=== PATIENT | female | born 1950 | race Caucasian/White ===

== ENCOUNTER → 2016-11-25 | Outpatient (CLI) | payer MEDICARE ==
--- NOTE | 2016-11-25 19:56 | WWHP ---
DATE OF DICTATION: 11/25/2016 CHIEF COMPLAINT: The patient is here for her routine gynecologic exam and mammogram. HISTORY OF PRESENT ILLNESS: This is a 66-year-old G3, P3 with an LMP of 1998. She is without gynecologic complaints. PAST MEDICAL HISTORY: 1. Chronic hypertension. 2. Elevated cholesterol. 3. Hearing loss requiring a hearing aid. MEDICATIONS: 1. Losartan/hydrochlorothiazide 100/12.5 mg 1 daily. 2. Adipex P 37.5 mg 1 daily p.r.n. 3. Calcium daily. 4. Vitamin D3 5000 units daily. 5. Iron 65 mg daily. 6. Vitamin B12 1000 mg once weekly. 7. Probiotic once daily. 8. Glucosamine with chondroitin 1 daily. 9. Lutein Plus 1 daily. 10. Co-Q10 100 mg daily. 11. Lissa root supplement daily. 12. Adult multivitamin 1 daily. ALLERGIES: NO KNOWN DRUG ALLERGIES. Past surgical, LOG GRADER and family histories are unchanged from the 2015 H&P. SOCIAL HISTORY: She denies tobacco and drug use and has about 4 to 5 alcoholic drinks per month. 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 She has 3 grandchildren. REVIEW OF SYSTEMS: She has lost about 26 pounds over the last year; this was following her gastric sleeve surgery. She denies respiratory, cardiac or GI problems. PHYSICAL EXAM: Blood pressure 133/80. Height 5 feet 7 inches. Weight 227 pounds. Temperature 97.6, pulse 70. This is a well-developed, heavyset white female who is alert and oriented x3, in no acute distress. HEENT is within normal limits. NECK: Supple without mass or thyromegaly. CHEST AND LUNGS: Clear to auscultation. HEART: Regular rate and rhythm. Breasts are without mass or discharge. Axillary exam is negative for adenopathy. BACK: Negative for CVA tenderness. ABDOMEN: Soft, nontender, without palpable masses. PELVIC EXAM: Normal external genitalia. Cervix and vagina appear normal. There is no evidence of prolapse. The uterus is midposition, nongravid size and nontender. There are no palpable adnexal masses or tenderness. Rectovaginal exam is negative for mass or tenderness and is negative for occult blood. EXTREMITIES: Nontender. IMPRESSION: Mbtrz-dgnui-[id number]-old menopausal female with normal gynecologic exam. PLAN: 1. Pap smear was deferred, since she had a normal one last year. 2. Self breast examination was discussed. 3. Mammogram will be done today. 4. Osteoporosis prevention was discussed, and we will plan on repeating bone density testing in approximately 3 years, since she had a normal one 2 years ago. 5. She states she is planning to get a colonoscopy, since she will be due in the near future. 6. She will return in one year.
--- NOTE | 2016-11-26 10:21 | MM ---
Reason for exam: screening (asymptomatic). Last mammogram was performed 1 year and 1 month ago. History: Patient is postmenopausal. Physical Findings: A clinical breast exam by your physician is recommended on an annual basis and results should be correlated with mammographic findings. MG 3D Screening Mammo W/Cad Bilateral CC and MLO view(s) were taken. Prior study comparison: October 31, 2015, bilateral MG 3d screening mammo w/cad. October 24, 2014, bilateral MG screening mammo w CAD. The breast tissue is almost entirely fat. Finding: There are typically benign diffuse/scattered calcifications in both breasts. No significant changes in finding since October 31, 2015 and October 24, 2014. ASSESSMENT: Benign, BI-RAD 2 RECOMMENDATION: Routine screening mammogram of both breasts in 1 year.
== END | disposition home or self-care (01) ==
LOC: WWCWWP 10:21
PROVIDERS: ATTEND Obstetrics & Gynecology
DX: Z12.31 Encounter for screening mammogram for malignant neoplasm of breast (principal)
CPT/HCPCS: 77063; G0202

== ENCOUNTER → 2017-03-23 | Outpatient (CLI) | payer MEDICARE ==
[2017-03-23 13:33] VITALS: BP 141/68; PULSE 53; RESP 15; TEMP 98; BMI 35.0
[2017-03-23 14:33] LABS: CH 29.8; CHCM 33.8; HCT 41.5 % (34.0-46.0); HDW 2.39; HGB 13.9 gm/dL (11.4-16.0); MCH 29.7 pg (25.0-35.0); MCHC 33.5 g/dL (31.0-37.0); MCV 88.4 fL (80.0-100.0); Mean Platelet Volume 7.4; RBC 4.69 m/uL (3.80-5.40); RDW 12.7 % (11.5-15.5); WBC 8.2 k/uL (3.8-10.6)
[2017-03-23 14:38] LABS: ALT 29 U/L (9-52); AST 20 U/L (14-36); Alkaline Phosphatase 75 U/L (38-126); Anion Gap 10 mmol/L; Blood Urea Nitrogen 16 mg/dL (7-17); Calcium 10.3 mg/dL (8.4-10.2); Carbon Dioxide 27 mmol/L (22-30); Chloride 106 mmol/L (98-107); Glucose 102 mg/dL (74-99); Non-African American GFR(MDRD) >60 (>60 ml/min/1.73 sqM); Sodium 143 mmol/L (137-145); Total Protein 6.8 g/dL (6.3-8.2)
[2017-03-23 15:26] LABS: Vitamin B12 911 pg/mL
--- NOTE | 2017-03-23 15:43 | P.HPBAR ---
Bariatric H&P - History & Physicial H&P Date: 03/23/17 History & Physicial: Visit/CC: sleeve annual exam 11/06 Patient initial contact: Initial weight: 140.614 kg Initial weight in pounds: 310.00 Height: 5 ft 7.25 in Initial BMI: 48.2 Last weight: Current weight: 102.194 kg Current weight in pounds: 225.30 Current BMI: 35.0 [place] body weight (based on NIH guidelines): 61.802 kg Excess body weight loss: 48.7% The patient is a 67 year-old F who presents for Bariatric Assessment. Patient rents for sleeve gastrectomy follow-up. She's not been seen over a year. She has some complaints of GERD and is wishing to have a refill of her Prilosec. Past Medical History Past Medical History: Hyperlipidemia, Hypertension Additional Past Medical History / Comment(s): 3 healthy vaginal pregnancies, arthritis beginning in left digit 5, hearing impaired with dx of otosclerosis History of Any Multi-Drug Resistant Organisms: None Reported Past Surgical History: Appendectomy, Bariatric Surgery, Tonsillectomy Additional Past Surgical History / Comment(s): lap band 2006 (removed 2014 when converted sleeve), right ear sx x2/ left ear sx x1. Past Anesthesia/Blood Transfusion Reactions: No Reported Reaction Additional Past Anesthesia/Blood Transfusion Reaction / Comm: no transfusions to date Past Psychological History: No Psychological Hx Reported Smoking Status: Former smoker Past Alcohol Use History: Occasional Additional Past Alcohol Use History / Comment(s): holiday social drinking Past Drug Use History: None Reported - Past Family History Mother Family Medical History: Cancer, Congestive Heart Failure (CHF), Coronary Artery Disease (CAD) Additional Family Medical History / Comment(s): bladder cancer. at age 92 from heart failure Father Family Medical History: Congestive Heart Failure (CHF), Coronary Artery Disease (CAD) Additional Family Medical History / Comment(s): at age 84 from heart problems Brother(s) Family Medical History: Cancer, Coronary Artery Disease (CAD) Additional Family Medical History / Comment(s): colon cancer. in age 60 's from heart attack. Surgical - Exam Vital Signs Temp Pulse Resp BP 98.0 F 53 L 15 141/68 03/23/17 13:14 03/23/17 13:14 03/23/17 13:14 03/23/17 13:14 - General well developed, no distress - Eyes PERRL - ENT normal pinna - Neck no masses - Respiratory normal expansion - Cardiovascular Rhythm: regular - Abdomen Abdomen: soft, non tender Results - Labs 03/23/17 13:48 03/23/17 13:48 Abnormal Lab Results - Last 24 Hours (Table) 03/23/17 Range/Units 13:48 Glucose 102 H (74-99) mg/dL Calcium 10.3 H (8.4-10.2) mg/dL Diabetes panel 03/23/17 Range/Units 13:48 Sodium 143 (137-145) mmol/L Potassium 4.0 (3.5-5.1) mmol/L Chloride 106 (98-107) mmol/L Carbon Dioxide 27 (22-30) mmol/L BUN 16 (7-17) mg/dL Creatinine 0.80 (0.52-1.04) mg/dL Glucose 102 H (74-99) mg/dL Calcium 10.3 H (8.4-10.2) mg/dL AST 20 (14-36) U/L ALT 29 (9-52) U/L Alkaline Phosphatase 75 (38-126) U/L Total Protein 6.8 (6.3-8.2) g/dL Albumin 4.0 (3.5-5.0) g/dL Calcium panel 03/23/17 Range/Units 13:48 Calcium 10.3 H (8.4-10.2) mg/dL Albumin 4.0 (3.5-5.0) g/dL Pituitary panel 03/23/17 Range/Units 13:48 Sodium 143 (137-145) mmol/L Potassium 4.0 (3.5-5.1) mmol/L Chloride 106 (98-107) mmol/L Carbon Dioxide 27 (22-30) mmol/L BUN 16 (7-17) mg/dL Creatinine 0.80 (0.52-1.04) mg/dL Glucose 102 H (74-99) mg/dL Calcium 10.3 H (8.4-10.2) mg/dL Adrenal panel 03/23/17 Range/Units 13:48 Sodium 143 (137-145) mmol/L Potassium 4.0 (3.5-5.1) mmol/L Chloride 106 (98-107) mmol/L Carbon Dioxide 27 (22-30) mmol/L BUN 16 (7-17) mg/dL Creatinine 0.80 (0.52-1.04) mg/dL Glucose 102 H (74-99) mg/dL Calcium 10.3 H (8.4-10.2) mg/dL Total Bilirubin 1.0 (0.2-1.3) mg/dL AST 20 (14-36) U/L ALT 29 (9-52) U/L Alkaline Phosphatase 75 (38-126) U/L Total Protein 6.8 (6.3-8.2) g/dL Albumin 4.0 (3.5-5.0) g/dL Bariatric Assessment & Plan Plan: Status post sleeve gastrectomy. Patient has maintained stable weight loss. The patient will have her GERD symptoms treated with Prilosec. A prescription was called into her [facility] pharmacy in [place]. She'll follow-up in one month. Bariatric Checklist Checklist: Plan: Checklist: EGD: 1. Hiatal hernia: 2. H. Pylori: HgbA1c: Vitamin D: Smoking: Former smoker Primary care physician referral: Flex Stevens ([facility]) Psychiatry clearance: Cardiology clearance: Sleep study: Diet journal: VTE risk score: VTE risk level: Rehab needs at discharge:
== END ==
LOC: BARWHC3 12:51
PROVIDERS: ATTEND Surgery
DX: Z48.815 Encounter for surgical aftercare following surgery on the digestive system (principal); Z98.84 Bariatric surgery status; K21.9 Gastro-esophageal reflux disease without esophagitis; E66.01 Morbid (severe) obesity due to excess calories; E55.9 Vitamin D deficiency, unspecified; Z87.891 Personal history of nicotine dependence; Z79.899 Other long term (current) drug therapy
CPT/HCPCS: 80053; 82306; 82607; 84425; 85027; 99211

== ENCOUNTER → 2017-04-13 | Outpatient (CLI) | payer MEDICARE ==
[2017-04-13 13:43] VITALS: BP 170/74; PULSE 54; TEMP 97.7; BMI 35.5
--- NOTE | 2017-04-13 16:02 | P.HPBAR ---
Bariatric H&P - History & Physicial H&P Date: 04/13/17 History & Physicial: Visit/CC: follow up visit Patient initial contact: Initial weight: 140.614 kg Initial weight in pounds: 310.00 Height: 5 ft 7.25 in Initial BMI: 48.2 Last weight: Current weight: 103.646 kg Current weight in pounds: 228.50 Current BMI: 35.5 [place] body weight (based on NIH guidelines): 61.802 kg Excess body weight loss: 46.9% The patient is a 67 year-old F who presents for Bariatric Assessment. She presents today for sleeve follow-up. She's had complaints of some epigastric pain and nausea. Review of Systems Constitutional: Reports as per HPI Past Medical History Past Medical History: Hyperlipidemia, Hypertension Additional Past Medical History / Comment(s): 3 healthy vaginal pregnancies, arthritis beginning in left digit 5, hearing impaired with dx of otosclerosis History of Any Multi-Drug Resistant Organisms: None Reported Past Surgical History: Appendectomy, Bariatric Surgery, Tonsillectomy Additional Past Surgical History / Comment(s): lap band 2006 (removed 2014 when converted sleeve), right ear sx x2/ left ear sx x1. Past Anesthesia/Blood Transfusion Reactions: No Reported Reaction Additional Past Anesthesia/Blood Transfusion Reaction / Comm: no transfusions to date Past Psychological History: No Psychological Hx Reported Smoking Status: Former smoker Past Alcohol Use History: Occasional Additional Past Alcohol Use History / Comment(s): holiday social drinking Past Drug Use History: None Reported - Past Family History Mother Family Medical History: Cancer, Congestive Heart Failure (CHF), Coronary Artery Disease (CAD) Additional Family Medical History / Comment(s): bladder cancer. at age 92 from heart failure Father Family Medical History: Congestive Heart Failure (CHF), Coronary Artery Disease (CAD) Additional Family Medical History / Comment(s): at age 84 from heart problems Brother(s) Family Medical History: Cancer, Coronary Artery Disease (CAD) Additional Family Medical History / Comment(s): colon cancer. in age 60 's from heart attack. Surgical - Exam Vital Signs Temp Pulse BP 97.7 F 54 L 170/74 04/13/17 13:37 04/13/17 13:37 04/13/17 13:37 - General well developed, no distress - Eyes PERRL - ENT normal pinna - Neck no masses - Respiratory normal expansion - Cardiovascular Rhythm: regular - Abdomen Abdomen: soft, non tender Bariatric Assessment & Plan Plan: Patient underwent esophagram/upper GI today. Her sleeve appears to be normal in configuration. There is no evidence of obstruction. There is no evidence of reflux or hiatal hernia. The patient has been scheduled for HIDA scan. She will follow-up in one month. Bariatric Checklist Checklist: Plan: Checklist: EGD: 1. Hiatal hernia: 2. H. Pylori: HgbA1c: Vitamin D: Smoking: Former smoker Primary care physician referral: Flex Stevens ([facility]) Psychiatry clearance: Cardiology clearance: Sleep study: Diet journal: VTE risk score: VTE risk level: Rehab needs at discharge:
--- NOTE | 2017-04-14 15:41 | FL ---
EXAMINATION TYPE: FL UGI DATE OF EXAM ORDERED: 04/13/2017 3:15 PM HISTORY: K21.9 GERD. COMPARISON: None. FINDINGS: The patient has had a previous gastric sleeve. There is mild dilatation of the distal esop hagus above the GE junction. There is a focal area of narrowing within the mid body of the remaining stomach. There is prompt egress of barium from the esophagus into the stomach and out of the stomach into the small bowel. The ligament of Treitz is in the normal location. IMPRESSION: 1. STATUS POST GASTRIC SLEEVE. 2. MINIMAL DILATATION OF THE ESOPHAGUS ABOVE THE GE JUNCTION. 3. FIXED AREA OF NARROWING IN THE MID STOMACH.
== END | disposition home or self-care (01) ==
LOC: BARWHC3 11:53
PROVIDERS: ATTEND Surgery
DX: K22.8 Other specified diseases of esophagus (principal); K31.89 Other diseases of stomach and duodenum; K21.9 Gastro-esophageal reflux disease without esophagitis; Z98.84 Bariatric surgery status; Z87.891 Personal history of nicotine dependence
CPT/HCPCS: 74240; G0463; 99211

== ENCOUNTER → 2017-05-04 | Outpatient (CLI) | payer MEDICARE ==
--- NOTE | 2017-05-04 15:04 | NM ---
Nuclear medicine hepatobiliary scan. HISTORY: Pain. The patient received 8 ounces of ensure plus and 5.2 mCi of Technetium 99m Choletec. There is normal hepatic extraction. The gallbladder is seen by 20 minutes. There is biliary to lashell l clearance by 20 minutes. Ejection fraction is 69%. IMPRESSION: 1. Normal hepatobiliary exam
== END | disposition home or self-care (01) ==
LOC: RADNMMAIN 12:40
PROVIDERS: ATTEND Surgery
DX: R10.84 Generalized abdominal pain (principal)
CPT/HCPCS: 78226; A9537

== ENCOUNTER → 2017-07-10 | Outpatient (CLI) | payer MEDICARE ==
[2017-07-10 15:14] LABS: Blood Urea Nitrogen 14 mg/dL (7-17); Non-African American GFR(MDRD) >60 (>60 ml/min/1.73 sqM)
--- NOTE | 2017-07-10 16:18 | CT ---
EXAMINATION TYPE: CT urogram wo/w con DATE OF EXAM: 07/10/2017 COMPARISON: NONE INDICATION: Hematuria and protein in urine, No complaints of pain DLP: 2754.7 mGycm, Automated exposure control for dose reduction was used. CONTRAST: 100 mL of Omnipaque 300. Study performed TECHNIQUE: Axial images were obtained from above the diaphragm to the pubic rami in the axial plane a t 5 mm thick sections. Reconstructed images are reviewed on the computer in the coronal plane. FINDINGS: Limited CT sections are obtained the lung bases. The lung bases are clear. There is a small hiatal h ernia present. Gastric sleeve appears to be present. Coronary artery calcification is noted. There a ppears to be a loculated pleural fluid collection just above the left diaphragm. This measures [address] ABDOMEN: Liver: Normal Spleen: Normal Pancreas: Normal Adrenal glands: The adrenal glands are normal. Gallbladder: Multiple gallstones are present. Kidneys: No masses are evident. Mild hydronephrosis of the right kidney which is present at superior pole. There is a large calcification within the right renal pelvis measuring 1.5 x 2.1 cm in size. No hydroureter is evident. No left renal stones are evident. No cysts are present. Delayed images were obtained through the kidneys. Three-D reconstructed images were obtained on delayed images. Ureters appear normal on Three-D reconstructed images to the level of the mid pelvis on the left left and to the urinary bladder on the right. No hydroureter is evident. There may be some focal stenosis without obstruction in the proximal right ureter. Aorta: Vascular calcification is within the aorta. Inferior vena cava: Normal. Loops of bowel within the abdomen and pelvis are normal. Study is performed without oral contrast limiting the evaluation. IMPRESSIONS: 1. Large calcification in the inferior left renal collecting system without obstruction. 2. Incomplete evaluation of the distal left ureter. No hydroureter is evident suggest obstruction. 3. Focal stenosis at the right ureteral pelvic junction may be present. This could be peristalsis wit hout hydronephrosis. Consider retrograde ureterogram for confirmation.
== END | disposition home or self-care (01) ==
LOC: RADCTMAIN 14:39
PROVIDERS: ATTEND Family Medicine
DX: N28.89 Other specified disorders of kidney and ureter (principal); R31.9 Hematuria, unspecified; R80.9 Proteinuria, unspecified; Z80.52 Family history of malignant neoplasm of bladder
CPT/HCPCS: 82565; 84520; 74178; 36415; 74400; Q9967

== ENCOUNTER → 2017-08-12 | Outpatient (CLI) | payer MEDICARE ==
--- NOTE | 2017-08-12 11:17 | XR ---
EXAMINATION TYPE: XR abdomen 1V DATE OF EXAM: 08/12/2017 11:00 AM CLINICAL HISTORY: Right-sided kidney stone TECHNIQUE: Two supine KUB images of the abdomen are obtained. COMPARISON: CT urogram July 10, 2017. FINDINGS: There is dominant 2.7 cm calculus right kidney lower pole collecting system extending into pelvis redemonstrated felt stable. Some scattered pelvic phleboliths are redemonstrated. There is overall nonobstructive bowel gas pattern. Surgical sutures from gastric sleeve procedure epi gastric region are redemonstrated. Curvilinear opacity left lung base correlates with basilar fluid o n CT. Visualized osseous structures are intact. IMPRESSION: Stable 2.7 cm dominant right lower pole collecting system calculus.
== END | disposition home or self-care (01) ==
LOC: RADXRMAIN 10:44
PROVIDERS: ATTEND Urology
DX: N20.2 Calculus of kidney with calculus of ureter (principal)
CPT/HCPCS: 74000

== ENCOUNTER → 2017-08-31 | Outpatient (CLI) | payer MEDICARE ==
[2017-08-31 12:41] LABS: EKG EKG PERFORMED
[2017-08-31 13:08] LABS: Basophils # (A) 0.1 k/uL (0-0.2); Basophils % (A) 2 %; CH 30.5; CHCM 33.8; Eosinophils # (A) 0.3 k/uL (0-0.7); Eosinophils % (A) 5 %; HCT 43.4 % (34.0-46.0); HDW 2.39; HGB 14.1 gm/dL (11.4-16.0); Luc # (Auto) 0.12; Luc % (Auto) 2; Lymphocytes # (A) 2.1 k/uL (1.0-4.8); Lymphocytes % (A) 29 %; MCH 29.5 pg (25.0-35.0); MCHC 32.6 g/dL (31.0-37.0); MCV 90.7 fL (80.0-100.0); Mean Platelet Volume 7.5; Monocytes # (A) 0.5 k/uL (0-1.0); Monocytes % (A) 7 %; Neutrophils # (A) 4.2 k/uL (1.3-7.7); Neutrophils % (A) 57 %; RBC 4.79 m/uL (3.80-5.40); RDW 13.6 % (11.5-15.5); WBC 7.4 k/uL (3.8-10.6); WBC (Perox) 7.75
[2017-08-31 13:16] LABS: ALT 37 U/L (9-52); AST 18 U/L (14-36); Alkaline Phosphatase 80 U/L (38-126); Anion Gap 11 mmol/L; Blood Urea Nitrogen 16 mg/dL (7-17); Calcium 9.9 mg/dL (8.4-10.2); Carbon Dioxide 23 mmol/L (22-30); Chloride 106 mmol/L (98-107); Glucose 152 mg/dL (74-99); Non-African American GFR(MDRD) >60 (>60 ml/min/1.73 sqM); Potassium 3.8 mmol/L (3.5-5.1); Sodium 140 mmol/L (137-145); Total Bilirubin 0.7 mg/dL (0.2-1.3); Total Protein 6.5 g/dL (6.3-8.2)
[2017-08-31 13:48] LABS: Appearance,Urine Turbid (Clear); Bacteria,Urine Moderate /hpf; Bilirubin,Urine Negative (Negative); Glucose,Urine (UA) Negative (Negative); Ketones,Urine Negative (Negative); Leukocyte Esterase,Urine Large (Negative); Mucus,Urine Few /hpf; Nitrite,Urine Positive (Negative); PH, Urine 5.5 (5.0-8.0); Particle Count 10870; Protein,Urine 2+ (Negative); RBC,Urine 34 /hpf (0-5); Specific Gravity,Urine 1.017 (1.001-1.035); Squamous Epithelial Cell,Urine 2 /hpf (0-4); UA Billing (MACRO vs. MICRO) MICRO; Urobilinogen,Urine <2.0 mg/dL (<2.0); WBC,Urine >182 /hpf (0-5)
--- NOTE | 2017-08-31 16:04 | XR ---
EXAMINATION TYPE: XR chest 2V DATE OF EXAM: 08/31/2017 COMPARISON: None HISTORY: 67-year-old female with a chest pain, presurgical evaluation TECHNIQUE: Frontal and lateral views FINDINGS: The cardiomediastinal silhouette, aorta, and pulmonary vasculature are within normal limits. There is some blunting of the lateral left costophrenic angle without pleural effusion on the lateral view. O therwise, lungs and pleural spaces are clear. Dextroconvex scoliosis of the thoracic spine. IMPRESSION: Some blunting of the left lateral costophrenic angle could represent pleural parenchymal scarring or some patchy atelectasis/infiltrate. No effusion on the lateral view.
== END | disposition home or self-care (01) ==
LOC: LABPAT 12:25
PROVIDERS: ATTEND Urology
DX: Z01.818 Encounter for other preprocedural examination (principal); Z01.810 Encounter for preprocedural cardiovascular examination; R91.8 Other nonspecific abnormal finding of lung field; N20.0 Calculus of kidney; I10 Essential (primary) hypertension; R35.0 Frequency of micturition; R31.29 Other microscopic hematuria; E66.9 Obesity, unspecified; Z79.899 Other long term (current) drug therapy
CPT/HCPCS: 71020; 80053; 81001; 85025; 86850; 86900; 86901; 87086; 93005

== ENCOUNTER 2017-09-11 11:51 | Inpatient (IN) | payer MEDICARE ==
[2017-09-07 09:12] VITALS: BMI 36.3
[~2017-09-11 11:51] MED LIST: DEXAMETHASONE SOD PHOSPHATE 10 MG/ML 1 ML VIAL IV ONE; MIDAZOLAM 2 MG/2 ML VIAL IV PRN; ONDANSETRON 4 MG/2 ML VIAL IVP ONE; ceFAZolin 1,000 MG in DEXTROSE/WATER 1 50ML.BAG IV ONE
[2017-09-11] MEDS: LACTATED RINGERS 1,000 ML IV SCH (12:17)
[2017-09-11] MEDS ORDERED: LIDOCAINE 1% 20 ML VIAL (10MG/ML) FOR IV START INTRADERMA ONE (12:17)
[2017-09-11] MEDS ORDERED: SUCCINYLCHOLINE CHLORIDE 100 MG/5 ML SYR IV ONE (12:44)
[2017-09-11] MEDS ORDERED: HYDROmorphone (PF) 1 MG/ML ONE (12:44)
[2017-09-11] MEDS ORDERED: ePHEDrine SULFATE/0.9% NACL/PF 50 MG/5 ML SYRINGE IV ONE (12:44)
[2017-09-11] MEDS ORDERED: PROPOFOL 10 MG/ML 20 ML VIAL IV ONE (12:44)
[2017-09-11] MEDS ORDERED: LIDOCAINE 1% INJ 10MG/ML (20 ML MDV) ONE (12:44)
[2017-09-11] MEDS ORDERED: fentaNYL (PF) 50 MCG/ML 2 ML AMP ONE (12:44)
[2017-09-11] MEDS ORDERED: MIDAZOLAM 2 MG/2 ML VIAL ONE (12:44)
[2017-09-11] MEDS ORDERED: IOHEXOL 300 MG/ML 50 ML BOTTLE MISCELLANE ONE (13:12)
[2017-09-11] MEDS ORDERED: PANTOPRAZOLE 40 MG TABLET PO PRN (14:13)
[2017-09-11] MEDS ORDERED: MAG HYDROX/AL HYDROX/SIMETH 30 ML CUP PO PRN (14:19)
[2017-09-11] MEDS ORDERED: NALOXONE 0.4 MG/ML 1 ML VIAL IV PRN (14:27)
--- NOTE | 2017-09-11 14:31 | FL ---
EXAMINATION TYPE: FL Perc Nephrostomy New Access DATE OF EXAM: 09/11/2017 COMPARISON: NONE HISTORY: Right-sided renal calculus. PROCEDURE: Maximal barrier technique was utilized. The skin overlying the right kidney was localized using fluo roscopy and the overlying skin prepped and draped. Lidocaine used for local anesthesia. Skin toni w as made with a scalpel. Access was gained under fluoroscopy, following placement of a ureteral occlu saima balloon by the referring clinician and instillation of air in the renal collecting system with a 22-gauge needle to the kidney. A suitable posterior calyx was chosen. A 0.018 inch wire was Flavours. The access site was dilated and subsequently a sheath was advanced into the renal pelvis follow ing dilation with balloon along the tract. Urine returned in the hub of the catheter. The patient und erwent nephrolithotomy by the referring clinician. The patient remained in stable condition without complication. The patient was discharged to observation. IMPRESSION: STATUS POST NEPHROSTOMY PLACEMENT FOR NEPHROLITHOTOMY WITH FLUOROSCOPIC GUIDANCE. THIS PROCEDURE PER FORMED BY THE UNDERSIGNED.
--- NOTE | 2017-09-11 14:32 | P.OP ---
Date of Procedure: 09/11/17 Preoperative Diagnosis: Right renal calculus large Postoperative Diagnosis: Same Procedure(s) Performed: Cystoscopy with placement of 5-Botswanan occluding balloon catheter, right percutaneous nephrostolithotomy large with ultrasound placement of 10-Botswanan J nephrostomy Anesthesia: DEMI Surgeon: Renaldo Grewal Estimated Blood Loss (ml): 100 Pathology: other (Stone) Condition: stable Disposition: PACU Indications for Procedure: The patient is a 67-year-old female with a 3 cm right renal pelvic stone partial staghorn calculus who comes for percutaneous nephrostolithotomy Description of Procedure: The patient is brought to the operating suite she is given a successful general endotracheal anesthesia. She's placed in a frog position with a sterile prep and drape. Cystoscopy of the Foroblique lens and 22-Botswanan sheath is performed. The right ureteral orifice is identified and intubated with a 5- [place]wan[place] occluding balloon catheter. The catheters passed into the proximal ureter. The balloon is insufflated. The cystoscope was removed. A 16-Botswanan Fisher catheters placed and secured to the ureteral catheter The patient is placed in prone position with care to airways and extremities. Dr. Larios of radiology performed percutaneous access to the right lower pole calyx. I dilate the sheath to 30-Botswanan. Introduced the working sheath into the collecting system. The stone is seen under direct vision. With the rigid scope and ultrasonic lithotripter the stone is broken into smaller pieces. The larger stones are grasped and subsequently removed. I then looked throughout the collecting system with the flexible cystoscope and see no remaining stones. Fluoroscopically confirms this. Over the working wire a 10-Botswanan J nephrostomy tube was placed in the collecting system. His position is confirmed fluoroscopically. It is secured to the skin with 2-0 silk. The patient's awakened and returned recovery room good condition. She tolerated the procedure well. Blood loss is approximately 100 mL.
[2017-09-11] MEDS: HYDROmorphone 0.5 MG/0.5 ML SYRINGE IVP PRN ×2 (15:00→15:09)
[2017-09-11] MEDS ORDERED: LACTATED RINGERS 1,000 ML IV ONE (15:25)
[2017-09-11] MEDS: ONDANSETRON 4 MG/2 ML VIAL IVP PRN ×2 (17:17→22:39)
[2017-09-11] MEDS: HYDROmorphone PCA 5 MG/25 ML SYRINGE IV PRN (18:27)
[2017-09-11] MEDS: DEXTROSE 5%-0.45% NACL 1,000 ML IV SCH (18:58)
[2017-09-11] MEDS: SULFAMETHOX-TMP 800-160MG 1 EACH TAB PO SCH (23:01)
[2017-09-11] MEDS: LOSARTAN 50 MG TAB PO SCH (23:01)
[2017-09-11] MEDS: HYDROCHLOROTHIAZIDE 12.5 MG CAP PO SCH (23:01)
[2017-09-12] MEDS: DEXTROSE 5%-0.45% NACL 1,000 ML IV SCH ×3 (00:51→14:21)
[2017-09-12] MEDS: LACTATED RINGERS 1,000 ML IV SCH (06:08)
[2017-09-12] MEDS: ONDANSETRON 4 MG/2 ML VIAL IVP PRN ×3 (06:09→22:01)
[2017-09-12] MEDS: SULFAMETHOX-TMP 800-160MG 1 EACH TAB PO SCH ×2 (07:29→21:57)
--- NOTE | 2017-09-12 08:11 | P.PN ---
Subjective Progress Note Date: 09/12/17 The patient underwent a right percutaneous nephrostolithotomy yesterday without difficulty. Her vital signs are stable and her urine output was good overnight. The urine is clear. She still feels somewhat weak and has not started eating or ambulating. She'll stay until tomorrow. I will discontinue her Fisher. I will advance her diet. Her abdomen is soft. Objective - Vital Signs Vital signs: Vital Signs Temp 97.3 F L 09/12/17 07:00 Pulse 62 09/12/17 07:00 Resp 20 09/12/17 07:00 BP 110/57 09/12/17 07:00 Pulse Ox 98 09/12/17 07:00 Intake & Output 09/11/17 09/12/17 09/12/17 18:59 06:59 18:59 Intake Total 1000 450 Output Total 1125 800 Balance -125 -350 Intake: IV 1000 Oral 450 Output: Drainage 125 Right Lateral Abdomen 125 Urine 900 800 Estimated Blood Loss 100 Other: Voiding Method Indwelling Catheter Indwelling Catheter # Voids 0 # Bowel Movements 0
[2017-09-12] MEDS ORDERED: ATORVASTATIN 20 MG TAB PO SCH (09:00)
[2017-09-12] MEDS: HYDROmorphone PCA 5 MG/25 ML SYRINGE IV PRN (12:27)
[2017-09-12] MEDS: LOSARTAN 50 MG TAB PO SCH (21:57)
[2017-09-12] MEDS: HYDROCHLOROTHIAZIDE 12.5 MG CAP PO SCH (21:57)
[2017-09-12] MEDS: ATORVASTATIN 20 MG TAB PO SCH (22:05)
[2017-09-13] MEDS: LACTATED RINGERS 1,000 ML IV SCH (06:32)
[2017-09-13] MEDS: DEXTROSE 5%-0.45% NACL 1,000 ML IV SCH ×2 (06:41→17:25)
[2017-09-13] MEDS: SULFAMETHOX-TMP 800-160MG 1 EACH TAB PO SCH ×2 (07:50→21:03)
[2017-09-13] MEDS ORDERED: HYDROcodone/APAP 5-325MG 1 EACH TAB PO PRN (09:27)
--- NOTE | 2017-09-13 09:28 | P.PN ---
Subjective The patient is in her second postoperative day from a right percutaneous nephrostolithotomy. Her vital signs are stable. Her urine is cleared. She still complains of too much pain into much and inability to go home. She lives by herself. I will encourage her to ambulate. 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 I'll place on oral pain medication. She'll be ready to be discharged home tomorrow. I'll remove her nephrostomy tube in the morning. Objective - Vital Signs Vital signs: Vital Signs Temp 98.5 F 09/13/17 07:00 Pulse 67 09/13/17 07:00 Resp 20 09/13/17 07:00 BP 117/59 09/13/17 07:00 Pulse Ox 96 09/13/17 07:00 Intake & Output 09/12/17 09/13/17 09/13/17 18:59 06:59 18:59 Intake Total 480 950 Output Total 425 450 Balance 55 500 Intake: Oral 480 950 Output: Drainage 225 450 Right Lateral Abdomen 225 450 Urine 200 Other: Voiding Method Indwelling Catheter # Voids 1 2 # Bowel Movements 0 0
[2017-09-13] MEDS: HYDROmorphone PCA 5 MG/25 ML SYRINGE IV PRN (10:10)
[2017-09-13] MEDS: ONDANSETRON 4 MG/2 ML VIAL IVP PRN ×2 (10:22→15:33)
[2017-09-13] MEDS: ACETAMINOPHEN TAB 325 MG TAB PO PRN ×2 (11:26→15:33)
[2017-09-13] MEDS: HYDROCHLOROTHIAZIDE 12.5 MG CAP PO SCH (21:03)
[2017-09-13] MEDS: LOSARTAN 50 MG TAB PO SCH (21:03)
[2017-09-13] MEDS: ATORVASTATIN 20 MG TAB PO SCH (21:03)
[2017-09-13] MEDS: DOCUSATE 100 MG CAP PO SCH (21:35)
[2017-09-14 00:26] VITALS: RESP 16
[2017-09-14] MEDS: ACETAMINOPHEN TAB 325 MG TAB PO PRN ×2 (00:48→08:18)
[2017-09-14] MEDS: DEXTROSE 5%-0.45% NACL 1,000 ML IV SCH (05:31)
[2017-09-14] MEDS: LACTATED RINGERS 1,000 ML IV SCH (05:47)
--- NOTE | 2017-09-14 07:30 | P.DS ---
Providers Date of admission: 09/11/17 11:51 Attending physician: Renaldo Grewal Primary care physician: Brendan Stevens MD Hospital Course: Patient is a 67-year-old female who underwent a right percutaneous nephrostolithotomy for a large (3 cm) renal stone. She had a moderate amount of persistent discomfort and nausea postoperatively that led her to remain in the hospital over the weekend. This morning she is feeling better and her pain is under control. Her nausea is minimal. The urine is clear. She'll be discharged home. She will go home with her nephrostomy tube which I will remove in the office tomorrow. She'll go home and regular diet. A prescription will be Tylenol 3 and Zofran. Her condition is good. The laboratory examination preoperatively as appropriate. Patient Condition at Discharge: Good Plan - Discharge Summary New Discharge Prescriptions: New HYDROcodone/APAP 5-325MG [[place]man 5-325] 1 tab PO Q4HR PRN #20 tab PRN Reason: Pain Acetaminophen-Codeine 300-30mg [Tylenol #3] 1 tab PO Q4H PRN #20 tablet PRN Reason: Pain Ondansetron [Zofran] 4 mg PO Q8HR PRN #10 tab PRN Reason: Nausea No Action Losartan/Hydrochlorothiazide [Losartan-Hctz 100-12.5 mg Tab] 1 tab PO HS Phentermine HCl [Adipex-P] 37.5 mg PO DAILY PRN PRN Reason: weight loss Ferrous Sulfate [Feosol] 325 mg PO DAILY Cholecalciferol [Vitamin D3] 5,000 unit PO DAILY Calcium Carbonate/Vitamin D3 [Caltrate 600 Plus D3 Tablet] 1 tab PO DAILY L.acidoph,Paracasei, B.lactis [Probiotic] 1 cap PO DAILY Ubidecarenone [Co Q-10] 200 mg PO DAILY Glucosam/Keith-Msm1/C/Pj/Bosw [Glucosamine-Chondroitin Tablet] 1 tab PO DAILY Multivitamin [Multivitamins Adult Gummies] 1 tab PO DAILY Lissa 500 mg PO DAILY Omeprazole 40 mg PO DAILY PRN PRN Reason: Heartburn Rosuvastatin [Crestor] 10 mg PO DAILY Cyanocobalamin (Vitamin B-12) [Vitamin B-12] 1,000 mcg SL DAILY Biotin 5,000 mcg PO DAILY Sulfamethox-Tmp 800-160Mg [Bactrim DS 800-160 mg] 1 tab PO Q12HR Discharge Medication List Calcium Carbonate/Vitamin D3 [Caltrate 600 Plus D3 Tablet] 1 tab PO DAILY [History] Cholecalciferol [Vitamin D3] 5,000 unit PO DAILY 03/23/17 [History] Ferrous Sulfate [Feosol] 325 mg PO DAILY 03/23/17 [History] Lissa 500 mg PO DAILY 03/23/17 [History] Glucosam/Keith-Msm1/C/Pj/Bosw [Glucosamine-Chondroitin Tablet] 1 tab PO DAILY 03/23/17 [History] L.acidoph,Paracasei, B.lactis [Probiotic] 1 cap PO DAILY 03/23/17 [History] Losartan/Hydrochlorothiazide [Losartan-Hctz 100-12.5 mg Tab] 1 tab PO HS [History] Multivitamin [Multivitamins Adult Gummies] 1 tab PO DAILY 03/23/17 [History] Phentermine HCl [Adipex-P] 37.5 mg PO DAILY PRN 03/23/17 [History] Ubidecarenone [Co Q-10] 200 mg PO DAILY 03/23/17 [History] Biotin 5,000 mcg PO DAILY 08/31/17 [History] Cyanocobalamin (Vitamin B-12) [Vitamin B-12] 1,000 mcg SL DAILY 08/31/17 [ History] Omeprazole 40 mg PO DAILY PRN 08/31/17 [History] Rosuvastatin [Crestor] 10 mg PO DAILY 08/31/17 [History] Sulfamethox-Tmp 800-160Mg [Bactrim DS 800-160 mg] 1 tab PO Q12HR 09/07/17 [ History] HYDROcodone/APAP 5-325MG [[place]outman 5-325] 1 tab PO Q4HR PRN #20 tab 09/12/17 [Rx] Acetaminophen-Codeine 300-30mg [Tylenol #3] 1 tab PO Q4H PRN #20 tablet [Rx] Ondansetron [Zofran] 4 mg PO Q8HR PRN #10 tab 09/14/17 [Rx] Follow up Appointment(s)/Referral(s): Renaldo Grewal MD [STAFF PHYSICIAN] - 10/24/17 Activity/Diet/Wound Care/Special Instructions: home with nephrostomy tube Please make an appoinment to see me tomorrow in theoffice for tube removal Discharge Disposition: HOME SELF-CARE
[2017-09-14 07:41] VITALS: BP 133/70; PULSE 58; TEMP 97.1
[2017-09-14] MEDS: DOCUSATE 100 MG CAP PO SCH (08:19)
[2017-09-14] MEDS: SULFAMETHOX-TMP 800-160MG 1 EACH TAB PO SCH (08:19)
== END 2017-09-14 10:32 | disposition home or self-care (01) | DRG 661 ==
LOC: 2ORMAIN 11:51 → 4MS4W 15:19
PROVIDERS: ADMIT Urology; ATTEND Urology
PROC: 0TC33ZZ Extirpation of Matter from Right Kidney Pelvis, Percutaneous Approach (ICD-10-PCS; 2017-09-11)
PROC: 0T9330Z Drainage of Right Kidney Pelvis with Drainage Device, Percutaneous Approach (ICD-10-PCS; principal; 2017-09-11 13:00)
DX: N20.0 Calculus of kidney (principal); E66.9 Obesity, unspecified; I10 Essential (primary) hypertension; Z79.82 Long term (current) use of aspirin; Z79.899 Other long term (current) drug therapy; G47.33 Obstructive sleep apnea (adult) (pediatric); Z98.84 Bariatric surgery status; K21.9 Gastro-esophageal reflux disease without esophagitis; Z82.49 Family history of ischemic heart disease and other diseases of the circulatory system; Z87.891 Personal history of nicotine dependence; Z80.52 Family history of malignant neoplasm of bladder; Z80.0 Family history of malignant neoplasm of digestive organs; E78.5 Hyperlipidemia, unspecified
CPT/HCPCS: 50432; 82365; 86850; 86900; 86901; 94760

== ENCOUNTER → 2017-12-22 | Outpatient (CLI) | payer MEDICARE ==
--- NOTE | 2017-12-23 09:01 | WWHP ---
[facility] - HISTORY AND PHYSICAL DATE OF SERVICE: 12/22/2017 CHIEF COMPLAINT: The patient is here for her routine gynecologic exam and mammogram. HPI: This is a 67-year-old, G3, P3 with an LMP of 1998. The patient is without gynecologic complaints and denies any postmenopausal bleeding. PAST MEDICAL HISTORY: Chronic hypertension, elevated cholesterol, hearing loss requiring a hearing aid and history of kidney stones. MEDICATIONS: 1. Losartan/hydrochlorothiazide 100/12.5 mg one daily. 2. Adipex-P 37.5 mg half tablet q. day p.r.n. She states she uses this infrequently. 3. Calcium supplement daily. 4. Vitamin D3, 5000 units daily. 5. Iron supplement 65 mg daily. 6. Vitamin B12, 1000 mg once weekly. 7. Probiotic once daily. 8. Glucosamine with chondroitin 1 daily. 9. Lutein Plus 1 daily. 10.CO Q10, 100 mg daily. 11.Lissa root supplement daily. 12.Multivitamin daily. ALLERGIES: No known drug allergies. PAST SURGICAL HISTORY: Lap band surgery 2005, multiple ear surgeries in the past, appendectomy age 5, colonoscopy done multiple times and she believes she has had one since 2009, one prior to that was in 2009, gastric sleeve surgery in 2014, right kidney stone removal 2016. PAST SEAT BUILDER HISTORY: She has been menopausal since 1998 and has no history of STDs. SOCIAL HISTORY: She denies tobacco and drug use and has about 2 alcohol containing drinks per month. She is single. 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 FAMILY HISTORY: She has a sister with lung cancer and a mother had bladder cancer and a brother had colon cancer. REVIEW OF SYSTEMS: She has lost 2 pounds over the last year. RESPIRATORY: She has had some symptoms from allergies. She denies cardiac or GI problems. She denies maltreatment or falling. : She denies any significant problems with urinary leakage. PHYSICAL EXAM: Blood pressure 134/84, height 5 feet 7 inches, weight 225 pounds, BMI 35, temperature 98.0, pulse 60. This is a well-developed, well-nourished, white female, who is alert and oriented x3, in no acute distress. HEENT is within normal limits. NECK: Supple without mass or thyromegaly. CHEST AND LUNGS: Clear to auscultation. HEART: Regular rate and rhythm. Breasts are without mass or discharge. Axillary exam is negative for adenopathy. BACK: Negative for CVA tenderness. ABDOMEN: Soft, nontender, without palpable masses. PELVIC EXAM: External genitalia reveals mild atrophy without lesions. Cervix and vagina reveals [id number] atrophy without lesions. There is no evidence of prolapse. The uterus is mid position, nongravid size and nontender. There are no palpable adnexal masses or tenderness. Rectovaginal exam is negative for mass or tenderness and is negative for occult blood. EXTREMITIES: Nontender. IMPRESSION: A 66-year-old menopausal female with normal gynecologic exam. PLAN: 1. Pap smear was performed. 2. Self breast examination was discussed. 3. Mammogram will be done today. 4. Osteoporosis prevention was discussed. We will plan on repeating bone density testing in about 2 years since she had a normal one in 2013. 5. She will check to see when her next colonoscopy is due when she next sees her primary care physician. 6. She will return in one year. 7. She did get a flu shot this past fall. MMODL / IJN: [id number] /
--- NOTE | 2017-12-24 09:16 | MM ---
Reason for exam: screening (asymptomatic). Last mammogram was performed 1 year and 1 month ago. History: Patient is postmenopausal. Physical Findings: A clinical breast exam by your physician is recommended on an annual basis and results should be correlated with mammographic findings. MG 3D Screening Mammo W/Cad Bilateral CC and MLO view(s) were taken. XCCL view(s) were taken of the right breast. Prior study comparison: November 25, 2016, bilateral MG 3d screening mammo w/cad. October 31, 2015, bilateral MG 3d screening mammo w/cad. There are scattered fibroglandular densities. No significant changes when compared with prior studies. ASSESSMENT: Negative, BI-RAD 1 RECOMMENDATION: Routine screening mammogram of both breasts in 1 year.
== END | disposition home or self-care (01) ==
LOC: WWCWWP 12:15
PROVIDERS: ATTEND Obstetrics & Gynecology
DX: Z12.31 Encounter for screening mammogram for malignant neoplasm of breast (principal)
CPT/HCPCS: 77063; 77067

== ENCOUNTER 2018-07-11 15:43 | Emergency (ER) | payer MEDICARE ==
[2018-07-11 16:08] VITALS: BP 142/87; PULSE 68; RESP 18; TEMP 98.2
--- NOTE | 2018-07-11 17:22 | ED ---
General Adult HPI - General Chief complaint: ENT Stated complaint: facial swelling, neck, ear pain Source: patient Mode of arrival: ambulatory Limitations: no limitations - History of Present Illness Initial comments: Dictation was produced using [employer] dictation software. please excuse any grammatical, word or spelling errors. Chief Complaint: 68-year-old female past medical history of hypertension, sleep apnea presents with left-sided. History of Present Illness: 68-year-old female presents with 2 day history of left-sided jaw pain. Patient states that she notices pain yesterday. She localizes the pain to her lower ear, upper neck and angle of the mandible. Denies any constitutional symptoms. Denies any pain with movement of the outer ear. Patient states that she has history of narrow external auditory canals. Denies any other symptoms. No jaw clicking or no malocclusion. Denies trauma to the face The ROS documented in this emergency department record has been reviewed and confirmed by me. Those systems with pertinent positive or negative responses have been documented in the HPI. All other systems are other negative and/or noncontributory. - Related Data Home Medications Medication Instructions Recorded Confirmed Calcium Carbonate/Vitamin D3 1 tab PO DAILY 03/23/17 07/11/18 [Caltrate 600 Plus D3 Tablet] Cholecalciferol [Vitamin D3] 5,000 unit PO DAILY 03/23/17 07/11/18 Ferrous Sulfate [Feosol] 325 mg PO DAILY 03/23/17 07/11/18 Lissa 500 mg PO DAILY 03/23/17 07/11/18 Glucosam/Keith-Msm1/C/Pj/Bosw 1 tab PO DAILY 03/23/17 07/11/18 [Glucosamine-Chondroitin Tablet] L.acidoph,Paracasei, B.lactis 1 cap PO DAILY 03/23/17 07/11/18 [Probiotic] Losartan/Hydrochlorothiazide 1 tab PO HS 03/23/17 07/11/18 [Losartan-Hctz 100-12.5 mg Tab] Multivitamin [Multivitamins Adult 1 tab PO DAILY 03/23/17 07/11/18 Gummies] Phentermine HCl [Adipex-P] 37.5 mg PO DAILY PRN 03/23/17 07/11/18 Ubidecarenone [Co Q-10] 200 mg PO DAILY 03/23/17 07/11/18 Cyanocobalamin (Vitamin B-12) 1,000 mcg SL DAILY 08/31/17 07/11/18 [Vitamin B-12] Omeprazole 40 mg PO DAILY PRN 08/31/17 07/11/18 Rosuvastatin [Crestor] 10 mg PO DAILY 08/31/17 07/11/18 Previous Rx's Medication Instructions Recorded Amoxicillin/Potassium Clav 1 tab PO Q12HR 5 Days #10 tab 07/11/18 [Augmentin 875-125 Tablet] Allergies Allergy/AdvReac Type Severity Reaction Status Date / Time No Known Allergies Allergy Verified 07/11/18 16:46 Review of Systems ROS Statement: Those systems with pertinent positive or pertinent negative responses have been documented in the HPI. ROS Other: All systems not noted in ROS Statement are negative. Past Medical History Past Medical History: GERD/Reflux, Hearing Disorder / Deafness, Hyperlipidemia, Hypertension, Sleep Apnea/CPAP/BIPAP Additional Past Medical History / Comment(s): hearing impaired with dx of otosclerosis, uses CPAP, kidney stones, currently tx. for UTI History of Any Multi-Drug Resistant Organisms: None Reported Past Surgical History: Appendectomy, Bariatric Surgery, Tonsillectomy Additional Past Surgical History / Comment(s): lap band-removed 2015, gastric sleeve, right ear sx x2/ left ear sx x1. Past Anesthesia/Blood Transfusion Reactions: No Reported Reaction Additional Past Anesthesia/Blood Transfusion Reaction / Comment(s): no transfusions to date Past Psychological History: No Psychological Hx Reported Smoking Status: Never smoker Past Alcohol Use History: None Reported Past Drug Use History: None Reported - Past Family History Mother Family Medical History: Cancer, Congestive Heart Failure (CHF), Coronary Artery Disease (CAD) Additional Family Medical History / Comment(s): bladder cancer. at age 92 from heart failure Father Family Medical History: Congestive Heart Failure (CHF), Coronary Artery Disease (CAD) Additional Family Medical History / Comment(s): at age 84 from heart problems Brother(s) Family Medical History: Cancer, Coronary Artery Disease (CAD) Additional Family Medical History / Comment(s): colon cancer. in age 60 's from heart attack. General Exam - General Exam Comments Initial Comments: PHYSICAL EXAM: General Impression: Alert and oriented x3, not in acute distress HEENT: Normocephalic atraumatic, extra-ocular movements intact, pupils equal and reactive to light bilaterally, mucous membranes moist, no dental tenderness , tenderness to palpation over the tissue just under the ear., Narrow external auditory canals, unable to visualize tympanic members of the left. No cheek swelling, no purulent fluid come from buccal duct Cardiovascular: Heart regular rate and rhythm, S1&S2 audible, no murmurs, rubs or gallops Chest: Lungs clear to auscultation bilaterally, no rhonchi, no wheeze, no rales Abdomen: Bowel sounds present, abdomen soft, non-tender, non-distended, no organomegaly Musculoskeletal: Pulses present and equal in all extremities, no peripheral edema Motor: Power 5/5 bilaterally, no focal deficits noted Neurological: CN II-XII grossly intact, no focal motor or sensory deficits noted Skin: Intact with no visualized rashes Psych: Normal affect and mood Limitations: no limitations Course Vital Signs 07/11/18 16:05 Temperature 98.2 F Pulse Rate 68 Respiratory 18 Rate Blood Pressure 142/87 O2 Sat by Pulse 98 Oximetry Medical Decision Making - Medical Decision Making ED course: 68-year-old feel presents with left-sided neck pain. It's unclear from HPI and physical examination with the pain is from. Vital signs upon arrival are within acceptable limits. At this point it is unclear what is causing her symptoms HPI.Laboratory evaluation obtained. There is mild leukocytosis of 13.1. CBC is unremarkable. Mental Bolick panel is unremarkable. CT soft tissue of the neck with contrast was obtained showing absent left submandibular salivary gland. There is a density on the left side submandibular soft tissue which could represent inflammatory reaction. At this point is still unclear what is causing patient' s symptoms. Given elevated white blood cell count and pain at the left submandibular area there is concern that this may represent an infectious process given that patient has a complex history. Patient be given prescription for antibiotics per she is told to follow-up with the ENT specialist for follow-up. - Lab Data Result diagrams: 07/11/18 17:55 07/11/18 17:55 Lab Results 07/11/18 07/11/18 Range/Units 17:55 17:55 WBC 13.1 H (3.8-10.6) k/uL RBC 4.73 (3.80-5.40) m/uL Hgb 13.8 (11.4-16.0) gm/dL Hct 40.2 (34.0-46.0) % MCV 84.8 (80.0-100.0) fL MCH 29.2 (25.0-35.0) pg MCHC 34.5 (31.0-37.0) g/dL RDW 12.6 (11.5-15.5) % Plt Count 375 (150-450) k/uL Neutrophils % 74 % Lymphocytes % 17 % Monocytes % 5 % Eosinophils % 3 % Basophils % 1 % Neutrophils # 9.6 H (1.3-7.7) k/uL Lymphocytes # 2.2 (1.0-4.8) k/uL Monocytes # 0.7 (0-1.0) k/uL Eosinophils # 0.4 (0-0.7) k/uL Basophils # 0.1 (0-0.2) k/uL Sodium 140 (137-145) mmol/L Potassium 4.3 (3.5-5.1) mmol/L Chloride 108 H (98-107) mmol/L Carbon Dioxide 26 (22-30) mmol/L Anion Gap 6 mmol/L BUN 16 (7-17) mg/dL Creatinine 0.70 (0.52-1.04) mg/dL Est GFR (CKD-EPI)AfAm >90 (>60 ml/min/1.73 sqM) Est GFR (CKD-EPI)NonAf 89 (>60 ml/min/1.73 sqM) Glucose 89 (74-99) mg/dL Calcium 9.9 (8.4-10.2) mg/dL Disposition Clinical Impression: Neck pain Disposition: HOME SELF-CARE Condition: Good Instructions: Neck Pain (ED) Prescriptions: Amoxicillin/Potassium Clav [Augmentin 875-125 Tablet] 1 tab PO Q12HR 5 Days #10 tab Is patient prescribed a controlled substance at d/c from ED?: No Referrals: Brendan Stevens MD [Primary Care Provider] - 1-2 days Time of Disposition: 19:27
[2018-07-11 18:10] LABS: Basophils # (A) 0.1 k/uL (0-0.2); Basophils % (A) 1 %; Eosinophils # (A) 0.4 k/uL (0-0.7); Eosinophils % (A) 3 %; HCT 40.2 % (34.0-46.0); HGB 13.8 gm/dL (11.4-16.0); Lymphocytes # (A) 2.2 k/uL (1.0-4.8); Lymphocytes % (A) 17 %; MCH 29.2 pg (25.0-35.0); MCHC 34.5 g/dL (31.0-37.0); MCV 84.8 fL (80.0-100.0); Monocytes # (A) 0.7 k/uL (0-1.0); Monocytes % (A) 5 %; Neutrophils # (A) 9.6 k/uL (1.3-7.7); Neutrophils % (A) 74 %; Platelet Count 375 k/uL (150-450); RBC 4.73 m/uL (3.80-5.40); RDW 12.6 % (11.5-15.5); WBC 13.1 k/uL (3.8-10.6)
[2018-07-11 18:22] LABS: Anion Gap 6 mmol/L; Blood Urea Nitrogen 16 mg/dL (7-17); Calcium 9.9 mg/dL (8.4-10.2); Carbon Dioxide 26 mmol/L (22-30); Chloride 108 mmol/L (98-107); Glucose 89 mg/dL (74-99); Potassium 4.3 mmol/L (3.5-5.1); Sodium 140 mmol/L (137-145)
--- NOTE | 2018-07-11 18:56 | CT ---
EXAMINATION TYPE: CT soft tissue neck w con DATE OF EXAM: 07/11/2018 6:46 PM COMPARISON: None HISTORY: left sided neck and facial swelling CT DLP: 672.5 mGycm Automated exposure control for dose reduction was used. CONTRAST: CT scan of the neck is performed following with IV Contrast, patient injected with 100 mL of Isovue 3 00. Axial images are obtained, coronal and sagittal reformatted images are reviewed. FINDINGS: There is normal branching pattern of the great vessels. Thyroid gland is symmetric. Trachea appears n ormal. Epiglottis is normal. There is no evidence of a pharyngeal mass. Prevertebral soft tissues kristina ear within normal limits. There are spondylotic changes in the mid and lower cervical spine. There is asymmetric increased size of the left parotid gland compared to the right. No discrete mass is seen. Right submandibular salivary gland appears normal. Left submandibular salivary gland is not seen. Th ere is some linear fluid density in the subcutaneous tissues in the left submandibular region. The to nsils appear normal. Adenoids appear normal. There is fluid level in the maxillary sinuses. There is mucosal thickening in the frontal and ethmoid sinuses. I see no bony destructive process. There is no rmal contrast opacification of carotid arteries and jugular veins. There are a few anterior and poste rior triangle cervical lymph nodes that measure less than 10 mm. IMPRESSION: Left submandibular salivary gland is absent. Subcutaneous density on the left side subma ndibular soft tissues could be postsurgical changes or some localized inflammatory reaction. Frontal ethmoid and bilateral maxillary sinusitis.
== END 2018-07-11 19:45 | disposition home or self-care (01) ==
LOC: EC 15:43
DX: M54.2 Cervicalgia (principal); D72.829 Elevated white blood cell count, unspecified; R68.84 Jaw pain; K21.9 Gastro-esophageal reflux disease without esophagitis; H91.90 Unspecified hearing loss, unspecified ear; E78.5 Hyperlipidemia, unspecified; I10 Essential (primary) hypertension; G47.30 Sleep apnea, unspecified; Z99.89 Dependence on other enabling machines and devices; Z79.899 Other long term (current) drug therapy
CPT/HCPCS: 36415; 80048; 85025; 70491; 99284; Q9967

== ENCOUNTER → 2018-10-11 | Outpatient (CLI) | payer MEDICARE ==
[2018-10-11 10:11] LABS: Basophils # (A) 0.1 k/uL (0-0.2); Basophils % (A) 1 %; Eosinophils # (A) 0.4 k/uL (0-0.7); Eosinophils % (A) 6 %; HCT 45.3 % (34.0-46.0); HGB 15.1 gm/dL (11.4-16.0); Lymphocytes # (A) 1.9 k/uL (1.0-4.8); Lymphocytes % (A) 27 %; MCH 29.5 pg (25.0-35.0); MCHC 33.3 g/dL (31.0-37.0); MCV 88.7 fL (80.0-100.0); Monocytes # (A) 0.5 k/uL (0-1.0); Monocytes % (A) 7 %; Neutrophils # (A) 3.8 k/uL (1.3-7.7); Neutrophils % (A) 56 %; Platelet Count 313 k/uL (150-450); RDW 12.8 % (11.5-15.5); WBC 6.8 k/uL (3.8-10.6)
[2018-10-11 16:24] LABS: Albumin 4.2 g/dL (3.80-4.90); Anion Gap 9.7 mmol/L (4.00-12.00); Bilirubin, Conjugated 0.2 mg/dL (0.20-0.40); Bilirubin,Unconjugated 0.6 mg/dL; Calcium 9.6 mg/dL (8.7-10.3); Carbon Dioxide 25.3 mmol/L (21.6-31.8); Globulin 2.1 g/dL (2.1-3.7); LDL Cholesterol,Calculated 139.6 mg/dL (0.0-131.0); Total Bilirubin 0.8 mg/dL (0.2-1.2); Total Protein 6.3 g/dL (6.2-8.2); VLDL Calculation 34.4 mg/dL (5.00-40.00)
[2018-10-11 16:34] LABS: T4, Free (Free Thyroxine) 1.3 ng/dL (0.80-1.80)
[2018-10-11 20:08] LABS: Hemoglobin A1C 5.5 % (4.0-6.0)
== END | disposition home or self-care (01) ==
LOC: LABWHC1 08:43
PROVIDERS: ATTEND Family Medicine
DX: E66.9 Obesity, unspecified (principal); E13.9 Other specified diabetes mellitus without complications; E55.9 Vitamin D deficiency, unspecified; I10 Essential (primary) hypertension; R10.9 Unspecified abdominal pain; Z79.891 Long term (current) use of opiate analgesic; Z79.899 Other long term (current) drug therapy
CPT/HCPCS: 36415; 80048; 80061; 80076; 82306; 83036; 84439; 84443; 85025

== ENCOUNTER → 2018-12-27 | Outpatient (CLI) | payer MEDICARE ==
[2018-12-27 16:44] VITALS: BP 156/79; PULSE 60; TEMP 97.7; BMI 36.3
--- NOTE | 2018-12-27 17:39 | P.HPBAR ---
Bariatric H&P - History & Physicial H&P Date: 12/27/18 History & Physicial: Visit/CC: EGD recommendation by PCP Patient initial contact: Initial weight: 140.614 kg Initial weight in pounds: 310.00 Height: 5 ft 7.25 in Initial BMI: 48.2 Last weight: Current weight: 105.959 kg Current weight in pounds: 233.60 Current BMI: 36.3 [place] body weight (based on NIH guidelines): 61.802 kg Excess body weight loss: 43.9% The patient is a 68 year-old F who presents for Bariatric Assessment. Patient presents today for sleeve gastrectomy follow-up. She has not been seen in 2 years. Her weight has remained stable. She has gained 5 pounds. She has had some minimal GERD. Past Medical History Past Medical History: GERD/Reflux, Hearing Disorder / Deafness, Hyperlipidemia, Hypertension, Sleep Apnea/CPAP/BIPAP Additional Past Medical History / Comment(s): hearing impaired with dx of otosclerosis, kidney stones History of Any Multi-Drug Resistant Organisms: None Reported Past Surgical History: Appendectomy, Bariatric Surgery, Tonsillectomy Additional Past Surgical History / Comment(s): lap band-removed 2014, gastric sleeve, right ear sx x2/ left ear sx x1., "huge" kidney stone removed 2015, Past Anesthesia/Blood Transfusion Reactions: No Reported Reaction Additional Past Anesthesia/Blood Transfusion Reaction / Comm: no transfusions to date Past Psychological History: No Psychological Hx Reported Smoking Status: Never smoker Past Alcohol Use History: None Reported Additional Past Alcohol Use History / Comment(s): holiday social drinking Past Drug Use History: None Reported - Past Family History Mother Family Medical History: Cancer, Congestive Heart Failure (CHF), Coronary Artery Disease (CAD) Additional Family Medical History / Comment(s): bladder cancer. at age 92 from heart failure Father Family Medical History: Congestive Heart Failure (CHF), Coronary Artery Disease (CAD) Additional Family Medical History / Comment(s): at age 84 from heart problems Brother(s) Family Medical History: Cancer, Coronary Artery Disease (CAD) Additional Family Medical History / Comment(s): colon cancer. in age 60 's from heart attack. Surgical - Exam Vital Signs Temp Pulse BP 97.7 F 60 156/79 12/27/18 16:20 12/27/18 16:20 12/27/18 16:20 - General well developed, well nourished, no distress - Eyes PERRL - ENT normal pinna - Neck no masses - Respiratory normal expansion - Cardiovascular Rhythm: regular - Abdomen Abdomen: soft, non tender Bariatric Assessment & Plan Plan: Status post sleeve gastrectomy. Patient is maintained approximately 70 pounds weight loss. Her GERD is minimal. The patient will be scheduled for EGD for her GERD. Bariatric Checklist Checklist: Plan: Checklist: EGD: 1. Hiatal hernia: 2. H. Pylori: HgbA1c: Vitamin D: Smoking: Never smoker Primary care physician referral: Flex Stevens ([facility]) Psychiatry clearance: Cardiology clearance: Sleep study: Diet journal: VTE risk score: VTE risk level: Rehab needs at discharge:
== END | disposition home or self-care (01) ==
LOC: BARWHC3 15:58
PROVIDERS: ATTEND Surgery
DX: Z09 Encounter for follow-up examination after completed treatment for conditions other than malignant neoplasm (principal); K21.9 Gastro-esophageal reflux disease without esophagitis; G47.33 Obstructive sleep apnea (adult) (pediatric); E78.5 Hyperlipidemia, unspecified; Z99.89 Dependence on other enabling machines and devices; Z90.49 Acquired absence of other specified parts of digestive tract; Z98.84 Bariatric surgery status; Z90.89 Acquired absence of other organs; Z98.890 Other specified postprocedural states
CPT/HCPCS: 99211

== ENCOUNTER 2018-12-29 11:42 | Day surgery (SDC) | payer MEDICARE ==
[2018-12-29] MEDS ORDERED: LACTATED RINGERS 1,000 ML IV SCH (11:55)
[2018-12-29] MEDS ORDERED: LIDOCAINE 1% 20 ML VIAL (10MG/ML) FOR IV START INTRADERMA PRN (11:55)
[2018-12-29] MEDS ORDERED: LIDOCAINE 1% INJ 10MG/ML (20 ML MDV) ONE (13:09)
[2018-12-29] MEDS ORDERED: GLYCOPYRROLATE 0.2 MG/ML 2 ML VIAL ONE (13:09)
[2018-12-29] MEDS ORDERED: PROPOFOL 10 MG/ML 20 ML VIAL IV ONE (13:09)
--- NOTE | 2018-12-29 13:22 | P.GSHP ---
History of Present Illness H&P Date: 12/29/18 Chief Complaint: gerd This a 68-year-old female who's had complaints of GERD. Patient notes today for EGD. Past Medical History Past Medical History: GERD/Reflux, Hearing Disorder / Deafness, Hyperlipidemia, Hypertension, Sleep Apnea/CPAP/BIPAP Additional Past Medical History / Comment(s): hearing impaired with dx of otosclerosis, kidney stones History of Any Multi-Drug Resistant Organisms: None Reported Past Surgical History: Appendectomy, Bariatric Surgery, Tonsillectomy Additional Past Surgical History / Comment(s): lap band-removed 2014, gastric sleeve, right ear sx x2/ left ear sx x1., "huge" kidney stone removed 2015, Past Anesthesia/Blood Transfusion Reactions: No Reported Reaction Additional Past Anesthesia/Blood Transfusion Reaction / Comment(s): no transfusions to date Past Psychological History: No Psychological Hx Reported Smoking Status: Never smoker Past Alcohol Use History: None Reported Additional Past Alcohol Use History / Comment(s): holiday social drinking Past Drug Use History: None Reported - Past Family History Mother Family Medical History: Cancer, Congestive Heart Failure (CHF), Coronary Artery Disease (CAD) Additional Family Medical History / Comment(s): bladder cancer. at age 92 from heart failure Father Family Medical History: Congestive Heart Failure (CHF), Coronary Artery Disease (CAD) Additional Family Medical History / Comment(s): at age 84 from heart problems Brother(s) Family Medical History: Cancer, Coronary Artery Disease (CAD) Additional Family Medical History / Comment(s): colon cancer. in age 60 's from heart attack. Medications and Allergies Home Medications Medication Instructions Recorded Confirmed Type Calcium Carbonate/Vitamin D3 1 tab PO DAILY 03/23/17 12/29/18 History [Caltrate 600 Plus D3 Tablet] Cholecalciferol [Vitamin D3] 5,000 unit PO DAILY 03/23/17 12/29/18 History Ferrous Sulfate [Feosol] 325 mg PO DAILY 03/23/17 12/29/18 History Lissa 500 mg PO DAILY 03/23/17 12/29/18 History Glucosam/Keith-Msm1/C/Pj/Bosw 1 tab PO DAILY 03/23/17 12/29/18 History [Glucosamine-Chondroitin Tablet] L.acidoph,Paracasei, B.lactis 1 cap PO DAILY 03/23/17 12/29/18 History [Probiotic] Multivitamin [Multivitamins Adult 1 tab PO DAILY 03/23/17 12/29/18 History Gummies] Phentermine HCl [Adipex-P] 37.5 mg PO DAILY PRN 03/23/17 12/29/18 History Ubidecarenone [Co Q-10] 200 mg PO DAILY 03/23/17 12/29/18 History Cyanocobalamin (Vitamin B-12) 1,000 mcg SL DAILY 08/31/17 12/29/18 History [Vitamin B-12] Omeprazole 40 mg PO DAILY PRN 08/31/17 12/29/18 History Famotidine 40 mg PO DAILY PRN 12/27/18 12/29/18 History Losartan/Hydrochlorothiazide 1 tab PO DAILY 12/29/18 12/29/18 History [Losartan-Hctz 100-12.5 mg Tab] Allergies Allergy/AdvReac Type Severity Reaction Status Date / Time No Known Allergies Allergy Verified 12/27/18 16:51 Surgical - Exam Vital Signs Temp Pulse Resp BP Pulse Ox 98. F 50 L 18 161/50 100 12/29/18 12:14 12/29/18 12:14 12/29/18 12:14 12/29/18 12:14 12/29/18 12:14 - General well developed, well nourished, no distress - Eyes PERRL - ENT normal pinna - Neck no masses - Respiratory normal expansion - Cardiovascular Rhythm: regular - Abdomen Abdomen: soft, non tender Assessment and Plan Assessment: GERD. We'll perform EGD.
--- NOTE | 2018-12-29 13:36 | P.OP ---
Date of Procedure: 12/29/18 Preoperative Diagnosis: GERD Postoperative Diagnosis: Antral gastritis No evidence of sleeve obstruction No hiatal hernia No evidence of significant esophagitis Procedure(s) Performed: EGD Anesthesia: MAC Surgeon: Ehsan Seth Pathology: other (Antrum) Condition: stable Disposition: PACU Description of Procedure: The patient's placed on the endoscopy table in the lateral position. She received IV sedation. The gastroscope placed oropharynx passed in the esophagus into the stomach. Scope was then placed through the pylorus. The first and second portion of the duodenum appeared normal. Scope was then brought back the antrum and this was minimal inflamed. A biopsies performed. Scope was then brought back through the gastric sleeve. There is no incision any obstruction, bleeding or scarring. There is no significant hiatal hernia. The GE junction was at 40 centimeters. The distal esophagusAppeared Normal. The proximal esophagus appeared normal. The scope was then withdrawn for patient..
[2018-12-29 13:38] VITALS: RESP 16
[2018-12-29 13:50] VITALS: BP 154/80; PULSE 64
== END 2018-12-29 14:08 | disposition home or self-care (01) ==
LOC: ORWHC2ENDO 11:42
PROVIDERS: ATTEND Surgery
DX: K21.9 Gastro-esophageal reflux disease without esophagitis (principal); K29.50 Unspecified chronic gastritis without bleeding; E78.5 Hyperlipidemia, unspecified; I10 Essential (primary) hypertension; H80.90 Unspecified otosclerosis, unspecified ear; H91.90 Unspecified hearing loss, unspecified ear; Z90.3 Acquired absence of stomach [part of]; Z82.49 Family history of ischemic heart disease and other diseases of the circulatory system; Z79.899 Other long term (current) drug therapy; G47.33 Obstructive sleep apnea (adult) (pediatric); Z87.442 Personal history of urinary calculi
CPT/HCPCS: 88305; 43239; J2001; J2704

== ENCOUNTER → 2019-01-25 | Outpatient (CLI) | payer MEDICARE ==
[2019-01-25 12:54] VITALS: BP 135/73; PULSE 75; RESP 18; TEMP 98; BMI 35.6
--- NOTE | 2019-01-25 13:37 | P.HPOB ---
History of Present Illness H&P Date: 01/25/19 Chief Complaint: The patient is here for her routine gynecologic exam and mammogram. This is a 69 year old G3 PIII with an LMP of 1998. The patient states she had been doing well, but noticed a spot of blood in her underwear today. She denies any postmenopausal bleeding other than what she noticed today. She did not notice this upon wiping after voiding. She is concerned that it may have been from her urine since her mother had bladder cancer. Review of Systems She is gained 3 pounds over the last year. She denies respiratory, cardiac and G.I. problems. She denies maltreatment or problems with falling. : she denies any significant problems with urinary leakage. She did notice a spot of blood in her underwear as in the HPI. Past Medical History Past Medical History: GERD/Reflux, Hearing Disorder / Deafness, Hyperlipidemia, Hypertension, Sleep Apnea/CPAP/BIPAP Additional Past Medical History / Comment(s): hearing impaired with dx of otosclerosis, kidney stones. PAST MEMBER OF TECHNICAL STAFF HISTORY: She has no history of STDs. History of Any Multi-Drug Resistant Organisms: None Reported Past Surgical History: Appendectomy, Bariatric Surgery, Tonsillectomy Additional Past Surgical History / Comment(s): lap band-removed 2014, gastric sleeve, right ear sx x2/ left ear sx x1., "huge" kidney stone removed 2015, colonoscopy 2009. Past Anesthesia/Blood Transfusion Reactions: No Reported Reaction Additional Past Anesthesia/Blood Transfusion Reaction / Comment(s): no transfusions to date Past Psychological History: No Psychological Hx Reported Smoking Status: Never smoker Past Alcohol Use History: Occasional (3 or 4 per month) Additional Past Alcohol Use History / Comment(s): holiday social drinking Past Drug Use History: None Reported Additional History: She is single. 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 - Past Family History Mother Family Medical History: Cancer, Congestive Heart Failure (CHF), Coronary Artery Disease (CAD) Additional Family Medical History / Comment(s): bladder cancer. at age 92 from heart failure Father Family Medical History: Congestive Heart Failure (CHF), Coronary Artery Disease (CAD) Additional Family Medical History / Comment(s): at age 84 from heart problems Brother(s) Family Medical History: Cancer, Coronary Artery Disease (CAD) Additional Family Medical History / Comment(s): colon cancer. in age 60 's from heart attack. Sister(s) Family Medical History: Cancer Additional Family Medical History / Comment(s): Lung cancer Medications and Allergies Home Medications Medication Instructions Recorded Confirmed Type Calcium Carbonate/Vitamin D3 1 tab PO DAILY 03/23/17 01/25/19 History [Caltrate 600 Plus D3 Tablet] Cholecalciferol [Vitamin D3] 5,000 unit PO DAILY 03/23/17 01/25/19 History Ferrous Sulfate [Feosol] 325 mg PO DAILY 03/23/17 01/25/19 History Lissa 500 mg PO DAILY 03/23/17 01/25/19 History Glucosam/Keith-Msm1/C/Pj/Bosw 1 tab PO DAILY 03/23/17 01/25/19 History [Glucosamine-Chondroitin Tablet] L.acidoph,Paracasei, B.lactis 1 cap PO DAILY 03/23/17 01/25/19 History [Probiotic] Multivitamin [Multivitamins Adult 1 tab PO DAILY 03/23/17 01/25/19 History Gummies] Phentermine HCl [Adipex-P] 37.5 mg PO DAILY PRN 03/23/17 01/25/19 History Ubidecarenone [Co Q-10] 200 mg PO DAILY 03/23/17 01/25/19 History Cyanocobalamin (Vitamin B-12) 1,000 mcg SL DAILY 08/31/17 01/25/19 History [Vitamin B-12] Omeprazole 40 mg PO DAILY PRN 08/31/17 01/25/19 History Losartan/Hydrochlorothiazide 1 tab PO DAILY 12/29/18 01/25/19 History [Losartan-Hctz 100-12.5 mg Tab] Allergies Allergy/AdvReac Type Severity Reaction Status Date / Time No Known Allergies Allergy Verified 01/25/19 12:44 Exam Vital Signs Temp Pulse Resp BP Pulse Ox 01/25/19 12:48 98.0 F 75 18 135/73 96 Intake and Output 01/24/19 01/25/19 01/25/19 22:59 06:59 14:59 Other: Weight 103.419 kg Height 5'7", weight 228 pounds, BMI 35.7. This is a well-developed well-nourished heavyset white female who is alert and oriented times 3 in no acute distress. HEENT: Within normal limits. NECK: Supple without mass or thyromegaly. CHEST AND LUNGS: Clear to auscultation. HEART: Regular rate and rhythm. BREASTS: Are without mass or discharge. AXILLARY EXAM: Negative for adenopathy. BACK: Negative for CVA tenderness. ABDOMEN: Soft, obese, nontender, without palpable masses. PELVIC EXAM: Normal external genitalia with mild atrophy. Cervix and vagina appear normal with mild atrophy. There is no unusual discharge. There is no evidence of blood. There is no evidence of prolapse. The uterus is midposition , nongravid size and nontender. There are no palpable adnexal masses or tenderness. RECTAL EXAM: rectal vaginal exam is negative for mass or tenderness and is negative for occult blood. EXTREMITIES: Nontender. IMPRESSION: 1. 69-year-old menopausal female with normal gynecologic exam. 2. Small spot of postmenopausal bleeding today with no significant physical findings at this time. Differential diagnosis will include small hematuria, small postmenopausal uterine bleeding or small skin or mucosal abrasion not seen on exam today. PLAN: 1. Pap smear was deferred since her normal one on 12/22/2017. 2. Self breast awareness was discussed with the patient. 3. Screening mammogram will be done today. 4. Pelvic ultrasound will be scheduled. 5. Urinalysis will be obtained today. This will be a clean catch midstream specimen. 6. If no evidence of endometrial thickening or hematuria, we will proceed conservatively. She was instructed to call she has recurrence of postmenopausal vaginal bleeding. 7. She did receive a flu shot this past fall. 8.Osteoporosis prevention was discussed. I have stressed the importance of adequate calcium, vitamin D and regular exercise. Recommended amounts of calcium and vitamin D were also discussed. Bone density screening will be done today. She previously had a normal one about 4 or 5 years ago. 9. She will return in one year for her annual old woman exam.
--- NOTE | 2019-01-25 18:37 | BD ---
EXAMINATION TYPE: Axial Bone Density DATE OF EXAM: 01/25/2019 COMPARISON: 12/21/2013 CLINICAL HISTORY: 69 year-old female postmenopausal screening without HRT Height: 66.5 IN Weight: 226 LBS RISK FACTORS HISTORY OF: Active: YES Postmenopausal woman: AGE 44 MEDICATIONS: Additional Medications: CALCIUM, VIT D, LOSARTAN, OMEPRAZOLE, VITAMINS EXAM MEASUREMENTS: Bone mineral densitometry was performed using the [employer] System. Bone mineral density as measured about the Lumbar spine is: ----- L1-L4(G/cm2): 1.159 T Score Values are as follows: ----- L2: -1.0 ----- L3: -0.2 ----- L4: 0.4 ----- L1-L4: -0.2 Bone mineral density has: Increased 2.6% since study of: 12/21/2013 Bone mineral density about the R hip (g/cm2): 0.957 Bone mineral density about the L hip (g/cm2): 0.940 T Score values are as follows: -----R Neck: -0.6 -----L Neck: -0.7 -----R Total: -0.7 -----L Total: -0.1 Bone mineral density has: Decreased -7.0% since study of: 12/21/2013 IMPRESSION: Normal (Values between +1 and -1 indicate normal bone mass). Consider repeating this study in 5 year s or sooner if there is some new clinical indication. NOTE: T-SCORE=SD OF THE YOUNG ADULT MEAN.
--- NOTE | 2019-01-27 09:43 | MM ---
Reason for exam: screening (asymptomatic). Last mammogram was performed 1 year and 1 month ago. History: Patient is postmenopausal. Physical Findings: A clinical breast exam by your physician is recommended on an annual basis and results should be correlated with mammographic findings. MG 3D Screening Mammo W/Cad Bilateral CC and MLO view(s) were taken. Prior study comparison: December 22, 2017, bilateral MG 3d screening mammo w/cad. November 25, 2016, bilateral MG 3d screening mammo w/cad. There are scattered fibroglandular densities. No significant changes when compared with prior studies. ASSESSMENT: Benign, BI-RAD 2 RECOMMENDATION: Routine screening mammogram of both breasts in 1 year.
== END ==
LOC: WWCWWP 12:09
PROVIDERS: ATTEND Obstetrics & Gynecology
DX: Z12.31 Encounter for screening mammogram for malignant neoplasm of breast (principal); Z78.0 Asymptomatic menopausal state
CPT/HCPCS: 77063; 77067; 77080

== ENCOUNTER → 2019-02-07 | Outpatient (CLI) | payer MEDICARE ==
--- NOTE | 2019-02-07 09:30 | US ---
EXAMINATION TYPE: US pelvic complete DATE OF EXAM: 02/07/2019 COMPARISON: NONE CLINICAL HISTORY: 69-year-old female N95.0 PMB. 1 episode of bleeding 2 to 3 weeks ago, 3, pa ra 3 TECHNIQUE: Transabdominal sonographic images of the pelvis were acquired. Date of LMP: 25 years ago FINDINGS: EXAM MEASUREMENTS: Uterus: 8.0 x 3.4 x 5.4 cm Endometrial Stripe: 5.3 mm Right Ovary: 2.4 x 1.2 x 1.7 cm Left Ovary: 2.1 x 1.2 x 1.8 cm 1. Uterus: Anteverted, cervical nabothian cyst seen on transverse imaging. 2. Endometrium: measures at the upper limits or normal 3. Right Ovary: wnl 4. Left Ovary: wnl 5. Bilateral Adnexa: wnl 6. Posterior cul-de-sac: wnl IMPRESSION: The endometrial stripe measures at the upper limits of normal in thickness for a postmenopausal femal e (5.3 mm). Further evaluation versus follow-up as clinically indicated.
--- NOTE | 2019-02-08 15:11 | P.PN ---
Progress Note - Text Progress Note Date: 02/08/19 OUTPATIENT FOLLOW-UP NOTE TEST(S)/RESULTS: pelvic ultrasound done on 02/07/2019 showed an endometrial thickness of 5.3. METHOD OF NOTIFICATION: the patient was notified by phone. PATIENT COMMENTS: the patient had the brief postmenopausal bleeding approximately 3 weeks ago and has not had any more since then. DIAGNOSIS: borderline endometrial thickness after an episode of postmenopausal bleeding DISCUSSION: because of this finding and the bleeding she has had, I have recommended endometrial biopsy. We have discussed the nature of the procedure and why I am recommending this. PLAN: patient will be scheduled for an endometrial biopsy.
== END | disposition home or self-care (01) ==
LOC: RADUSWWP 08:16
PROVIDERS: ATTEND Obstetrics & Gynecology
DX: N95.0 Postmenopausal bleeding (principal)
CPT/HCPCS: 76856

== ENCOUNTER → 2019-02-09 | Day surgery (SDC) | payer MEDICARE ==
[2019-02-09 12:27] VITALS: BP 149/70; PULSE 61; RESP 18; TEMP 97; BMI 36.3
--- NOTE | 2019-02-09 13:09 | P.PCN ---
Date of Procedure: 02/09/19 Preoperative Diagnosis: Small postmenopausal bleeding Postoperative Diagnosis: Small postmenopausal bleeding Procedure(s) Performed: Endometrial biopsy Anesthesia: none Surgeon: Jarvis Haddad Estimated Blood Loss (ml): 1 Pathology: other (endometrial tissue) Condition: stable Disposition: same day Indications for Procedure: This was a 69 year old female who had brief vaginal spotting on 01/25/2019. Pelvic ultrasound showed an endometrial thickness of 5.3 mm which is considered borderline. Operative Findings: The uterus is non-gravid size. There are no palpable adnexal masses or tenderness. The uterus measured 8 cm. Small amount of tissue was obtained. Description of Procedure: The endometrial biopsy procedure was described to the patient. All of her questions were answered. The patient was placed in the lithotomy position. Bimanual examination was performed. The uterus is mid-positioned and is non- gravid size. The speculum was inserted and the cervix and vagina were prepped with betadine solution. The 3mm endometrial biopsy curette was placed to the fundus without difficulty. The uterus sounded to 8 cm. A [id number] rotating motion was used and a small amount of tissue was obtained and sent for pathological examination. The procedure was repeated and a small amount of tissue was again obtained and sent for pathological examination. The patient tolerated the procedure well. There were no complications. The post procedure vitals are as follows: blood pressure 173/81. pulse 55, temperature 97.0. Post procedure instructions were given to the patient.
--- NOTE | 2019-02-15 09:09 | P.PN ---
Progress Note - Text Progress Note Date: 02/15/19 OUTPATIENT FOLLOW-UP NOTE TEST(S)/RESULTS: endometrial biopsy from 02/09/2019 inactive/atrophic endometrium METHOD OF NOTIFICATION: the patient was notified by phone. PATIENT COMMENTS: the patient is happy to hear this results. DIAGNOSIS: benign endometrial biopsy after scant brief postmenopausal bleeding. DISCUSSION: the patient's pelvic ultrasound had a borderline endometrial thickness of 5.3 mm PLAN: the patient was reassured with these benign findings. The patient was instructed to call if she has any recurrence of vaginal bleeding.
== END ==
LOC: WWCWWP 11:40
PROVIDERS: ATTEND Obstetrics & Gynecology
DX: N85.8 Other specified noninflammatory disorders of uterus (principal); K21.9 Gastro-esophageal reflux disease without esophagitis; H91.90 Unspecified hearing loss, unspecified ear; I10 Essential (primary) hypertension; E78.5 Hyperlipidemia, unspecified; G47.30 Sleep apnea, unspecified; Z99.89 Dependence on other enabling machines and devices; Z87.442 Personal history of urinary calculi; Z98.84 Bariatric surgery status; Z80.52 Family history of malignant neoplasm of bladder; Z80.0 Family history of malignant neoplasm of digestive organs; Z80.1 Family history of malignant neoplasm of trachea, bronchus and lung; Z79.899 Other long term (current) drug therapy
CPT/HCPCS: 88305

== ENCOUNTER → 2020-05-01 | Outpatient (CLI) | payer MEDICARE ==
[2020-05-01 13:26] VITALS: BP 137/82; PULSE 57; RESP 20; TEMP 98.2
--- NOTE | 2020-05-01 14:03 | P.HPOB ---
History of Present Illness H&P Date: 05/01/20 Chief Complaint: The patient is here for her routine gynecologic exam and ma mmogram. This is a 70-year-old with an LMP of 1998. The patient is without gynecologic complaints and denies any postmenopausal bleeding. Review of Systems Her weight has been stable. She denies respiratory, cardiac and G.I. problems. She denies maltreatment or problems with falling. : she denies any significant problems with urinary leakage. Past Medical History Past Medical History: GERD/Reflux, Hearing Disorder / Deafness, Hyperlipidemia, Hypertension, Sleep Apnea/CPAP/BIPAP Additional Past Medical History / Comment(s): hearing impaired with dx of otosclerosis, kidney stones. 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 She has no other history of STDs. History of Any Multi-Drug Resistant Organisms: None Reported Past Surgical History: Appendectomy, Bariatric Surgery, Tonsillectomy Additional Past Surgical History / Comment(s): lap band-removed 2014, gastric sleeve, right ear sx x2/ left ear sx x1., "huge" kidney stone removed 2015, colonoscopy 2009. Past Anesthesia/Blood Transfusion Reactions: No Reported Reaction Additional Past Anesthesia/Blood Transfusion Reaction / Comment(s): no transfusions to date Past Psychological History: No Psychological Hx Reported Smoking Status: Never smoker Past Alcohol Use History: Occasional (0-2 per week) Additional Past Alcohol Use History / Comment(s): holiday social drinking Past Drug Use History: None Reported Additional History: She is single. She is currently not seeing anybody at this time and is currently not sexually active. - Past Family History Mother Family Medical History: Cancer, Congestive Heart Failure (CHF), Coronary Artery Disease (CAD) Additional Family Medical History / Comment(s): bladder cancer. at age 92 from heart failure Father Family Medical History: Congestive Heart Failure (CHF), Coronary Artery Disease (CAD) Additional Family Medical History / Comment(s): at age 84 from heart problems Brother(s) Family Medical History: Cancer, Coronary Artery Disease (CAD) Additional Family Medical History / Comment(s): colon cancer. in age 60's from heart attack. Sister(s) Family Medical History: Cancer Additional Family Medical History / Comment(s): Lung cancer Medications and Allergies Home Medications Medication Instructions Recorded Confirmed Type Calcium Carbonate/Vitamin D3 1 tab PO DAILY 05/01/17 06/09/20 History [Caltrate 600 Plus D3 Tablet] Cholecalciferol [Vitamin D3] 5,000 unit PO DAILY 03/23/17 05/01/20 History Ferrous Sulfate [Feosol] 325 mg PO DAILY 03/23/17 05/01/20 History Lissa 500 mg PO DAILY 03/23/17 05/01/20 History Glucosam/Keith-Msm1/C/Pj/Bosw 1 tab PO DAILY 03/23/17 05/01/20 History [Glucosamine-Chondroitin Tablet] L.acidoph,Paracasei, B.lactis 1 cap PO DAILY 03/23/17 05/01/20 History [Probiotic] Multivitamin [Multivitamins Adult 1 tab PO DAILY 03/23/17 05/01/20 History Gummies] Phentermine HCl [Adipex-P] 37.5 mg PO DAILY PRN 03/23/17 05/01/20 History Ubidecarenone [Co Q-10] 200 mg PO DAILY 03/23/17 05/01/20 History Cyanocobalamin (Vitamin B-12) 1,000 mcg SL DAILY 08/31/17 05/01/20 History [Vitamin B-12] Omeprazole 40 mg PO DAILY PRN 08/31/17 05/01/20 History Losartan/Hydrochlorothiazide 1 tab PO DAILY 12/29/18 05/01/20 History [Losartan-Hctz 100-12.5 mg Tab] Allergies Allergy/AdvReac Type Severity Reaction Status Date / Time No Known Allergies Allergy Verified 05/01/20 13:26 Exam Vital Signs Temp Pulse Resp BP Pulse Ox 05/01/20 13:19 98.2 F 57 L 20 137/82 99 Intake and Output 04/30/20 05/01/20 05/01/20 22:59 06:59 14:59 Other: Weight 102.965 kg Height 5 feet 8 inches, weight 227 pounds, BMI 34.5. This is a well-developed well-nourished white female who is alert and oriented times 3 in no acute distress. HEENT: Within normal limits. NECK: Supple without mass or thyromegaly. CHEST AND LUNGS: Clear to auscultation. HEART: Regular rate and rhythm. BREASTS: Are without mass or discharge. AXILLARY EXAM: Negative for adenopathy. BACK: Negative for CVA tenderness. ABDOMEN: Soft, nontender, without palpable masses. PELVIC EXAM: Normal external genitalia with mild atrophy. Cervix and vagina appear normal with mild atrophy. There is no unusual discharge. There is no evidence of prolapse. The uterus is midposition, nongravid size and nontender. There are no palpable adnexal masses or tenderness. RECTAL EXAM: Rectovaginal exam is negative for mass or tenderness and is negative for occult blood. There is a 1 cm benign appearing external hemorrhoid. EXTREMITIES: Nontender. IMPRESSION: 1. 70-year-old menopausal female with normal gynecologic exam. PLAN: 1. Pap smear was performed. This was done today because of her history of positive high-risk HPV testing in 2013 and previous ASCUS Pap smears. If this is negative, we will consider discontinuing Pap smears. 2. Self breast awareness was discussed with the patient. 3. Screening mammogram will be done today. 4. Osteoporosis prevention was discussed. I have stressed the importance of adequate calcium, vitamin D and regular exercise. Recommended amounts of calcium and vitamin D were also discussed. She had a normal bone density test in 2019 and we'll plan on repeating this in 2023. 5. STD prevention was discussed. Limiting sexual partners was discussed and we have also discussed the use of condoms if she is sexually active. 6. The patient was advised to return in 1-2 years for her well woman examination.
--- NOTE | 2020-05-03 08:15 | MM ---
Reason for exam: screening (asymptomatic). Last mammogram was performed 1 year and 3 months ago. History: Patient is postmenopausal. Physical Findings: A clinical breast exam by your physician is recommended on an annual basis and results should be correlated with mammographic findings. MG 3D Screening Mammo W/Cad Bilateral CC, MLO, and XCCL view(s) were taken. Prior study comparison: January 25, 2019, bilateral MG 3d screening mammo w/cad. December 22, 2017, bilateral MG 3d screening mammo w/cad. Benign appearing bilateral calcifications. No significant changes when compared with prior studies. ASSESSMENT: Benign, BI-RAD 2 RECOMMENDATION: Routine screening mammogram of both breasts in 1 year.
--- NOTE | 2020-05-15 08:51 | P.PN ---
Progress Note - Text Progress Note Date: 05/15/20 OUTPATIENT FOLLOW-UP NOTE TEST(S)/RESULTS: test results from 05/01/2020 include negative Pap smear and benign mammogram. METHOD OF NOTIFICATION: the patient was notified by phone. PATIENT COMMENTS: the patient is happy to hear these results. She has no history of cancerous or precancerous changes of the cervix. DIAGNOSIS: negative Pap smear and benign mammogram. DISCUSSION: She has had 3 negative Pap smears in a row. We will plan to discontinue Pap smear testing since she is considered low risk. PLAN: The patient was advised to return in 1-2 years for her well woman examination.
== END | disposition home or self-care (01) ==
LOC: WWCWWP 13:10
PROVIDERS: ATTEND Obstetrics & Gynecology
DX: Z12.31 Encounter for screening mammogram for malignant neoplasm of breast (principal)
CPT/HCPCS: 77063; 77067